=== PATIENT | male | born 1945 | race Asian ===

== ENCOUNTER 2017-07-02 08:27 | Emergency (ER) | payer OTHER ==
[~2017-07-02] VITALS: Ht 172.7 cm; Wt 60.0 kg
[2017-07-02 08:30] VITALS: BP 136/80; PULSE 84; RESP 16; TEMP 97.8; O2SAT 99
[2017-07-02] MEDS ORDERED: IBUP1TAB7 PO (08:48)
[2017-07-02] MEDS ORDERED: PERC5TAB12 PO (08:48)
[2017-07-02] MEDS ORDERED: CLIN300C5 PO (08:48)
[2017-07-02] MEDS ORDERED: oxyCODONE/ACETAMINOPHEN 5 MG/325 MG TAB PO ONE (09:00)
[2017-07-02] MEDS ORDERED: CLINDAMYCIN PHOS 600 MG/4 ML VIAL IM ONE (09:00)
--- NOTE | 2017-07-02 09:11 | PD ---
HPI Chief Complaint: Oral / Dental Pain or Problem Time Seen by Provider: 08:41 Travel History International Travel<30 days: No Contact w/Intl Traveler<30days: No Traveled to known affect area: No History of Present Illness HPI 71-year-old male presents emergency department with pain and swelling to the #4 tooth with swelling into the palate. Patient states pain is currently 9 out of 10 and worsening. He has been taking ibuprofen and Tylenol without relief. He denies fever, chills, or difficulty swallowing. He denies any drainage to the area. He has no known drug allergies PFS Past Medical History Medical History: Denies Significant Hx Diminished Hearing: No Tetanus Vaccination: Unknown Past Surgical History Surgical History: No Previous Surgery Social History Alcohol Use: Yes (on occasion) Tobacco Use: No Substance Use: No Allergies-Medications (Allergen,Severity, Reaction): Coded Allergies: No Known Allergies (Unverified , 07/02/17) Reported Meds & Prescriptions Reported Meds & Active Scripts Active Percocet (Oxycodone-Acetaminophen) 5-325 mg Tab 1 Tab PO Q6H PRN Ibuprofen 800 Mg Tab 800 Mg PO Q8H PRN Clindamycin (Clindamycin HCl) 300 Mg Cap 300 Mg PO Q6H 7 Days Review of Systems Except as stated in HPI: all other systems reviewed are Neg General / Constitutional: No: Fever Eyes: No: Visual changes HENT: Positive: Dental Difficulties, No: Headaches, Vertigo, Lightheadedness, Sore Throat, Rhinitis, Rhinorrhea, Congestion, Nosebleed, Neck Stiffness, Neck Pain, Gingival Bleeding, Earache Cardiovascular: No: Chest Pain or Discomfort Respiratory: No: Shortness of Breath Gastrointestinal: No: Abdominal Pain Genitourinary: No: Dysuria Musculoskeletal: No: Pain Skin: No Rash Neurologic: No: Weakness Psychiatric: No: Depression Endocrine: No: Polydipsia Hematologic/Lymphatic: No: Easy Bruising Physical Exam Narrative GENERAL: Patient appears in mild to moderate distress SKIN: Warm and dry. Normal color. Normal turgor. No rash. HEAD: Atraumatic. Normocephalic. EYES: Pupils equal and round. No scleral icterus. No injection or drainage. ENT: No nasal bleeding or discharge. Mucous membranes pink and moist. Patient has obvious cavity to the base of the #4 tooth with localized swelling into the hard palate. Pharynx is clear. Airways patent. NECK: Trachea midline. Supple and nontender without significant lymphadenopathy. CARDIOVASCULAR: Regular rate and rhythm. RESPIRATORY: No accessory muscle use. Clear to auscultation. Breath sounds equal bilaterally. GASTROINTESTINAL: Abdomen soft, non-tender, nondistended. Hepatic and splenic margins not palpable. MUSCULOSKELETAL: Extremities without clubbing, cyanosis, or edema. No obvious deformities. NEUROLOGICAL: Awake and alert. No obvious cranial nerve deficits. Motor grossly within normal limits. Five out of 5 muscle strength in the arms and legs. Normal speech. PSYCHIATRIC: Appropriate mood and affect; insight and judgment normal. Data Data Last Documented VS Vital Signs Date Time Temp Pulse Resp B/P (MAP) Pulse Ox O2 Delivery O2 Flow Rate FiO2 07/02/17 08:30 97.8 84 16 136/80 (98) 99 Orders Orders Clindamycin Inj (Cleocin Inj) (07/02/17 09:00) Oxycodone-Acetamin 5-325 Mg (Percocet (07/02/17 09:00) MDM Medical Decision Making Medical Screen Exam Complete: Yes Emergency Medical Condition: Yes Medical Record Reviewed: Yes Differential Diagnosis Ental caries. Dental pain. Dental abscess. Narrative Course Patient is in moderate distress. Patient is given 600 mg clindamycin IM. Patient is given Percocet 5/325 1 p.o. now. Patient will be continued on clindamycin 300 mg 4 times daily for 10 days. Patient also given ibuprofen 800 mg 3 times daily with food #60. Patient also given Percocet 5/325 one every 6 hours as needed #12 Patient should follow with dental personnel soon as possible. Patient can return with worsening symptoms if necessary. Diagnosis Primary Impression: Dental abscess Patient Instructions: Dental Abscess (ED), General Instructions Additional Instructions: Patient is in moderate distress. Patient is given 600 mg clindamycin IM. Patient is given Percocet 5/325 1 p.o. now. Patient will be continued on clindamycin 300 mg 4 times daily for 10 days. Patient also given ibuprofen 800 mg 3 times daily with food #60. Patient also given Percocet 5/325 one every 6 hours as needed #12 Patient should follow with dental personnel soon as possible. Patient can return with worsening symptoms if necessary. Scripts Oxycodone-Acetaminophen (Percocet) 5-325 mg Tab 1 TAB PO Q6H Y for PAIN, #12 TAB 0 Refills Prov: Inder Roper MD 07/02/17 Ibuprofen (Ibuprofen) 800 Mg Tab 800 MG PO Q8H Y for Pain/Inflammation, #60 TAB 0 Refills Prov: Inder Roper MD 07/02/17 Clindamycin (Clindamycin) 300 Mg Cap 300 MG PO Q6H for Infection for 7 Days, #28 CAP 0 Refills Prov: Inder Roper MD 07/02/17 Disposition: 01 DISCHARGE HOME Condition: Stable Kelby Vu Jul 02, 2017 09:11
== END 2017-07-02 09:39 | disposition home or self-care (01) ==
LOC: NEPD 08:27
DX: K04.7 Periapical abscess without sinus (principal)
CPT/HCPCS: 96372